=== PATIENT | female | born 1965 | race American Indian/Alaskan Native ===

== ENCOUNTER 2019-01-12 00:29 | Emergency (ER) | payer SELFPAY ==
[2019-01-12] MEDS ORDERED: PROVENTIL IH ONE (00:56)
[2019-01-12] MEDS ORDERED: ATROVENT IH ONE (00:56)
--- NOTE | 2019-01-12 00:56 | Emergency Department Report ---
ED Shortness of Breath HPI - General Chief Complaint: Dyspnea/Respdistress Stated Complaint: DIFFICULTY IN BREATHING Time Seen by Provider: 01/12/19 00:55 Source: patient Mode of arrival: Ambulatory Limitations: No Limitations - History of Present Illness MD Complaint: shortness of breath, "asthma attack" -: Sudden, This evening Severity: severe Consistency: constant Improves With: nothing Worsens With: nothing Known History Of: asthma Associated Symptoms: cough Treatments Prior to Arrival: none - Related Data Home Oxygen Therapy: No Previous Rx's Medication Instructions Recorded Last Taken Type ALBUTEROL Inhaler(NF) [VENTOLIN 2 puff IH Q6HR PRN #1 inha 01/12/19 Unknown Rx Inhaler(NF)] Amoxicillin/Potassium Clav 1 each PO BID #20 tablet 01/12/19 Unknown Rx [Augmentin 875-125 Tablet] predniSONE [Deltasone] 50 mg PO QDAY #5 tab 01/12/19 Unknown Rx Allergies Allergy/AdvReac Type Severity Reaction Status Date / Time No Known Allergies Allergy Unverified 01/12/19 00:42 ED Review of Systems ROS: Stated complaint: DIFFICULTY IN BREATHING Other details as noted in HPI Comment: All other systems reviewed and negative Constitutional: denies: chills, fever Eyes: denies: eye pain, eye discharge, vision change ENT: denies: ear pain, throat pain Respiratory: cough, shortness of breath. denies: wheezing Cardiovascular: denies: chest pain, palpitations Endocrine: no symptoms reported Gastrointestinal: denies: abdominal pain, nausea, diarrhea Genitourinary: denies: urgency, dysuria, discharge Musculoskeletal: denies: back pain, joint swelling, arthralgia Skin: denies: rash, lesions Neurological: denies: headache, weakness, paresthesias Psychiatric: denies: anxiety, depression Hematological/Lymphatic: denies: easy bleeding, easy bruising ED Past Medical Hx - Past Medical History Previous Medical History?: Yes Hx Hypertension: Yes Hx Asthma: Yes - Surgical History Past Surgical History?: No - Social History Smoking Status: Never Smoker Substance Use Type: None - Medications Home Medications: Home Medications Medication Instructions Recorded Confirmed Last Taken Type ALBUTEROL Inhaler(NF) [VENTOLIN 2 puff IH Q6HR PRN #1 inha 01/12/19 Unknown Rx Inhaler(NF)] Amoxicillin/Potassium Clav 1 each PO BID #20 tablet 01/12/19 Unknown Rx [Augmentin 875-125 Tablet] predniSONE [Deltasone] 50 mg PO QDAY #5 tab 01/12/19 Unknown Rx ED Physical Exam - General Limitations: No Limitations General appearance: alert, in no apparent distress - Head Head exam: Present: atraumatic, normocephalic - Eye Eye exam: Present: normal appearance, PERRL, EOMI - ENT ENT exam: Present: normal exam, mucous membranes moist - Neck Neck exam: Present: normal inspection, full ROM. Absent: tenderness - Respiratory Respiratory exam: Present: respiratory distress, wheezes, rhonchi - Cardiovascular Cardiovascular Exam: Present: normal rhythm, tachycardia. Absent: systolic murmur, diastolic murmur, rubs, gallop - GI/Abdominal GI/Abdominal exam: Present: soft, normal bowel sounds. Absent: distended, tenderness, guarding - Extremities Exam Extremities exam: Present: normal inspection, full ROM, normal capillary refill. Absent: tenderness - Back Exam Back exam: Present: normal inspection - Neurological Exam Neurological exam: Present: alert, oriented X3, CN II-XII intact - Psychiatric Psychiatric exam: Present: normal affect, normal mood - Skin Skin exam: Present: warm, dry, intact, normal color. Absent: rash ED Course Vital Signs 01/12/19 01/12/19 01/12/19 00:35 00:59 01:22 Temperature 97.4 F L Pulse Rate 129 H 122 H Pulse Rate [ 121 H 118 H Anterior Bilateral Throughout] Respiratory 18 20 Rate Respiratory 20 18 Rate [Anterior Bilateral Throughout] Blood Pressure 190/113 Blood Pressure 176/100 [Left] O2 Sat by Pulse 99 100 Oximetry 01/12/19 01:34 Temperature Pulse Rate 122 H Pulse Rate [ Anterior Bilateral Throughout] Respiratory Rate Respiratory Rate [Anterior Bilateral Throughout] Blood Pressure 157/85 Blood Pressure [Left] O2 Sat by Pulse Oximetry - Reevaluation(s) Reevaluation #1: 01/12/19 03:13 Patient said she feels much better after receiving treatment in the ED. She wants to go home. ED Medical Decision Making - Lab Data Result diagrams: 01/12/19 01:28 01/12/19 01:28 - Radiology Data Radiology results: report reviewed, image reviewed CXR is negative. Critical care attestation.: If time is entered above; I have spent that time in minutes in the direct care of this critically ill patient, excluding procedure time. ED Disposition Clinical Impression: Bronchitis Asthma with acute exacerbation Qualifiers: Asthma severity: unspecified severity Asthma persistence: unspecified Qualified Code(s): J45.901 - Unspecified asthma with (acute) exacerbation Disposition: TO HOME OR SELFCARE Is pt being admited?: No Does the pt Need Aspirin: No Condition: Stable Instructions: Asthma (ED), Acute Bronchitis (ED) Additional Instructions: Please follow up with your regular doctor on Sunday. Return to the ED if your condition worsens. Prescriptions: ALBUTEROL Inhaler(NF) [VENTOLIN Inhaler(NF)] 2 puff IH Q6HR PRN #1 inha PRN Reason: Shortness Of Breath Amoxicillin/Potassium Clav [Augmentin 875-125 Tablet] 1 each PO BID #20 tablet predniSONE [Deltasone] 50 mg PO QDAY #5 tab Referrals: ALYSON NAVARRETE MD [Primary Care Provider] - 3-5 Days Time of Disposition: 03:14
[2019-01-12] MEDS ORDERED: SOLU-Medrol IV ONE (01:02)
[2019-01-12] MEDS ORDERED: LEVAQUIN 750MG/150ML 750 MG/150 ML BAG IV ONE (01:02)
[2019-01-12] MEDS ORDERED: CATAPRES PO ONE ×2 (01:06→01:24)
[2019-01-12 02:06] LABS: Alanine Aminotransferase 12 units/L (7-56); Albumin 4.1 g/dL (3.9-5); BUN/Creatinine Ratio 13; Blood Urea Nitrogen 8 mg/dL (7-17); Calcium 8.9 mg/dL (8.4-10.2); Hemolysis Index 41
[2019-01-12 02:16] LABS: Basophils # (Auto) 0.1 K/mm3 (0.0-0.1); Eosinophils # (Auto) 0.9 K/mm3 (0.0-0.4); Eosinophils % (Auto) 7.6 % (0.0-4.3); Hematocrit 36.2 % (30.3-42.9); Hemoglobin 11.7 gm/dl (10.1-14.3); Lymphocytes # (Auto) 3.2 K/mm3 (1.2-5.4); Mean Corpuscular HGB Conc 32 % (30-34); Mean Corpuscular Volume 83 fl (79-97); Monocytes % (Auto) 8.7 % (0.0-7.3); Platelet Count 428 K/mm3 (140-440); Red Blood Count 4.39 M/mm3 (3.65-5.03); Red Cell Distribution Width 14.7 % (13.2-15.2)
[2019-01-12 03:44] VITALS: BP 117/61
--- NOTE | 2019-01-14 08:23 | XRay Report ---
FINAL REPORT PROCEDURE: XRAY CHEST 2 VIEWS TECHNIQUE: PA and lateral chest radiographs were obtained. CPT 12669 HISTORY: DYSPENA COMPARISON: No prior studies are available for comparison. FINDINGS: Heart: Normal. Mediastinum/Vessels: Normal. Lungs/Pleural space: Normal. Bony thorax: No acute osseous abnormality. Other: IMPRESSION: Normal examination.
== END 2019-01-12 03:35 | disposition home or self-care (01) ==
LOC: ED 00:29
DX: J45.901 Unspecified asthma with (acute) exacerbation (principal); I10 Essential (primary) hypertension
CPT/HCPCS: 36415; 71045; 80053; 82803; 83735; 85025; 94640; 96365; 96366; 96375; 99284; J1956; J2930

== ENCOUNTER 2019-02-19 16:36 | Inpatient (IN) | payer OTHER ==
[2019-02-19] MEDS ORDERED: ATROVENT IH ONE (16:43)
[2019-02-19] MEDS ORDERED: PROVENTIL IH ONE (16:43)
[2019-02-19] MEDS ORDERED: DECADRON IM ONE (16:43)
--- NOTE | 2019-02-19 16:43 | Emergency Department Report ---
Blank Doc - Documentation Documentation: This is a 53-year-old female that presents with wheezing and SOB. This initial assessment/diagnostic orders/clinical plan/treatment(s) is/are subject to change based on patient's health status, clinical progression and re- assessment by fellow clinical providers in the ED. Further treatment and workup at subsequent clinical providers discretion. Patient/guardians urged not to elope from the ED as their condition may be serious if not clinically assessed and managed. Initial orders include: 1- Patient sent to [facility] for further evaluation and treatment 2- CXR 3- breathing treatment with steroids
[2019-02-19] MEDS ORDERED: MAGNESIUM SULFATE IV ONE (17:12)
[2019-02-19] MEDS ORDERED: DUONEB *Not for PRN Use IH ONE (17:15)
[2019-02-19] MEDS ORDERED: MAGNESIUM SULFATE 2GM/50ML 2 GM/50 ML BAG IV ONE (17:15)
--- NOTE | 2019-02-19 17:40 | Emergency Department Report ---
ED Asthma HPI - General Chief Complaint: Adult Asthma Stated Complaint: ASTHMA Time Seen by Provider: 02/19/19 16:42 Source: patient Mode of arrival: Ambulatory Limitations: No Limitations - History of Present Illness Initial Comments: Pt is a 53 yo female who presents to the ED with c/o asthma exacerbation that began yesterday. She has associated SOB and wheezing. The patient states she used three albuterol nebulizer treatments at home today. She states she also went to [facility] today and had a breathing treatment there as well. She also uses a proair inhaler. The patient denies any productive cough, fever, or rhinorrhea. She states she does have seasonal allergies. The patient says she is supposed to be on montelukast but ran out a week ago. - Related Data Previous Rx's Medication Instructions Recorded Last Taken Type ALBUTEROL Inhaler(NF) [VENTOLIN 2 puff IH Q6HR PRN #1 inha 01/12/19 Unknown Rx Inhaler(NF)] Amoxicillin/Potassium Clav 1 each PO BID #20 tablet 01/12/19 Unknown Rx [Augmentin 875-125 Tablet] predniSONE [Deltasone] 50 mg PO QDAY #5 tab 01/12/19 Unknown Rx Allergies Allergy/AdvReac Type Severity Reaction Status Date / Time No Known Allergies Allergy Unverified 01/12/19 00:42 ED Review of Systems ROS: Stated complaint: ASTHMA Other details as noted in HPI Comment: All other systems reviewed and negative ED Past Medical Hx - Past Medical History Hx Hypertension: Yes Hx Asthma: Yes - Surgical History Past Surgical History?: No - Social History Smoking Status: Never Smoker Substance Use Type: None - Medications Home Medications: Home Medications Medication Instructions Recorded Confirmed Last Taken Type ALBUTEROL Inhaler(NF) [VENTOLIN 2 puff IH Q6HR PRN #1 inha 01/12/19 Unknown Rx Inhaler(NF)] Amoxicillin/Potassium Clav 1 each PO BID #20 tablet 01/12/19 Unknown Rx [Augmentin 875-125 Tablet] predniSONE [Deltasone] 50 mg PO QDAY #5 tab 01/12/19 Unknown Rx ED Physical Exam - General Limitations: No Limitations General appearance: alert - Head Head exam: Present: atraumatic, normocephalic - Eye Eye exam: Present: normal appearance - ENT ENT exam: Present: mucous membranes moist - Respiratory Respiratory exam: Present: respiratory distress (moderate ), wheezes (diffuse ), other (pt is able to speak in full sentences ). Absent: rales, rhonchi, stridor, chest wall tenderness, decreased breath sounds - Cardiovascular Cardiovascular Exam: Present: regular rate, normal rhythm, normal heart sounds. Absent: systolic murmur, rubs, gallop - Neurological Exam Neurological exam: Present: alert, oriented X3 - Psychiatric Psychiatric exam: Present: normal affect, normal mood - Skin Skin exam: Present: warm, dry, intact ED Course Vital Signs 02/19/19 02/19/19 02/19/19 16:42 17:21 19:50 Temperature 97.5 F L 97.7 F Pulse Rate 115 H 100 H Pulse Rate [ 107 H Anterior Bilateral Throughout] Respiratory 20 18 Rate Respiratory 24 Rate [Anterior Bilateral Throughout] Blood Pressure 157/91 Blood Pressure 134/83 [Left] O2 Sat by Pulse 100 95 Oximetry 02/19/19 22:24 Temperature 97.9 F Pulse Rate 102 H Pulse Rate [ Anterior Bilateral Throughout] Respiratory 18 Rate Respiratory Rate [Anterior Bilateral Throughout] Blood Pressure Blood Pressure 139/88 [Left] O2 Sat by Pulse 96 Oximetry - Reevaluation(s) Reevaluation #1: 02/19/19 17:40 pt given neb tx and dexamethasone 10 mg in triage continues to have diffuse wheezing and working to breath, will give longer tx and magnesium and will reassess Reevaluation #2: 02/19/19 20:00 s/p neb tx pt continues to wheeze, will call inpatient to admit for asthma exacerbation - Consultations Consultation #1: 02/19/19 20:15 Called inpatient who advised that someone would call back Consultation #2: 02/19/19 21:[address] maguire, hospitalist for admission Consultation #3: 02/19/19 22:[address] Maguire, hospitalist who will admit patient and resume care. ED Medical Decision Making - Radiology Data Radiology results: report reviewed PROCEDURE: XR CHEST ROUTINE 2V HISTORY: sob wheezing FINDINGS: Frontal and lateral views the chest were acquired and compared to the prior examination of January 12. The heart is normal in size. The lungs appear mildly hyperinflated similar to the prior exam. There is no acute consolidative infiltrate. IMPRESSION: Stable mild hyperinflation This document is electronically signed by Heraclio Carias MD., February 19 2019 07:48:55 PM ET - Medical Decision Making Pt is a 53 yo female who presents to the ED with c/o asthma exacerbation that began yesterday. She has associated SOB and wheezing. The patient states she used three albuterol nebulizer treatments at home today. She states she also went to [facility] today and had a breathing treatment there as well. She also uses a proair inhaler. The patient denies any productive cough, fever, or rhinorrhea. Pt given duo neb and dexamethasone in triage and continued to have wheezing. Pt given another neb treatment at a higher dose and magnesium sulfate and still continued wheezing. CXR with no acute process except for asthma changes. Oxygen saturation between 95-100%. Pt admitted to Dr. Maguire, hospitalist for further evaluation and management of asthma exacerbation. - Differential Diagnosis Asthma exacerbation, PNA, URI Critical care attestation.: If time is entered above; I have spent that time in minutes in the direct care of this critically ill patient, excluding procedure time. ED Disposition Clinical Impression: Asthma exacerbation Qualifiers: Asthma severity: moderate Asthma persistence: persistent Qualified Code(s): J45.41 - Moderate persistent asthma with (acute) exacerbation Disposition: 09 OP ADMIT IP TO THIS HOSP Is pt being admited?: Yes Does the pt Need Aspirin: No Condition: Stable Time of Disposition: 22:20
--- NOTE | 2019-02-19 19:51 | XRay Report ---
PROCEDURE: XR CHEST ROUTINE 2V HISTORY: sob wheezing FINDINGS: Frontal and lateral views the chest were acquired and compared to the prior examination of January 12. The heart is normal in size. The lungs appear mildly hyperinflated similar to the prior exam. There i s no acute consolidative infiltrate. IMPRESSION: Stable mild hyperinflation This document is electronically signed by Heraclio Carias MD., February 19 2019 07:48:55 PM ET
[2019-02-19] MEDS ORDERED: TYLENOL PO PRN (22:47)
[2019-02-19] MEDS ORDERED: ZOFRAN IV PRN (22:47)
--- NOTE | 2019-02-19 22:49 | History and Physical Report ---
History of Present Illness Date of examination: 02/19/19 History of present illness: 53-year-old was admitted a history of asthma comes emergency room with complaints of shortness of breath, wheezing 1 week. She was seen at [facility] one week ago and was given prednisone, Augmentin which she has been taking for last 1 week. There is symptoms improve slightly however it got worse again. She was seen at [facility] today, they gave her breathing treatment, she can to emergency room for further evaluation. Complaining of cough productive of clear phlegm, no fever or chills Review of systems Constitutional: no weight loss, chills, fever Ears, eyes, nose, mouth and throat: no nasal congestion, no nasal discharge, no sinus pressure, no vision change, no red eye. Neck: No neck pain or rigidity. Cardiovascular: no palpitations, chest pain Respiratory: +cough, shortness of breath Gastrointestinal: no hematochezia, abdominal pain Genitourinary : no frequency , no hematuria Musculoskeletal: no joint swelling or muscle ache Integumentary: no rash, no pruritis Neurological: no parathesias, no focal weakness Endocrine: no cold or heat intolerance, no polyuria or polydipsia Hematologic/Lymphatic: no easy bruising, no easy bleeding, no gland swelling Allergic/Immunologic: no urticaria, no angioedema. PAST MEDICAL HISTORY:asthma PAST SURGICAL HISTORY: None SOCIAL HISTORY: Denies alcohol, drugs, tobacco FAMILY HISTORY: Hypertension Medications and Allergies Allergies Allergy/AdvReac Type Severity Reaction Status Date / Time No Known Allergies Allergy Unverified 01/12/19 00:42 Home Medications Medication Instructions Recorded Confirmed Last Taken Type ALBUTEROL Inhaler(NF) [VENTOLIN 2 puff IH Q6HR PRN #1 inha 01/12/19 Unknown Rx Inhaler(NF)] Amoxicillin/Potassium Clav 1 each PO BID #20 tablet 01/12/19 Unknown Rx [Augmentin 875-125 Tablet] predniSONE [Deltasone] 50 mg PO QDAY #5 tab 01/12/19 Unknown Rx Active Meds: Active Medications Acetaminophen (Tylenol) 650 mg PO Q4H PRN PRN Reason: Pain MILD(1-3)/Fever >100.5/MARTINEZ Albuterol/Ipratropium (Duoneb *Not For Prn Use*) 1 ampul IH Q6HRT [facility] Enoxaparin Sodium (Lovenox) 30 mg SUB-Q QDAY ALTHEA Methylprednisolone Sodium Succinate (Solu-Medrol) 125 mg IV Q6H ALTHEA Ondansetron HCl (Zofran) 4 mg IV Q4H PRN PRN Reason: Nausea And Vomiting Sodium Chloride (Sodium Chloride Flush Syringe 10 Ml) 10 ml IV BID ALTHEA Sodium Chloride (Sodium Chloride Flush Syringe 10 Ml) 10 ml IV PRN PRN PRN Reason: LINE FLUSH Exam - Physical Exam Narrative exam: General Apperance: The patient lying in bed, breathing comfortable HEENT: Normocephalic, atraumatic. Pupils equally round and reactive to light, EOMI, no sclericterus or JVD or thyromegaly or nodule. , no carotid bruit, m ucous membranes moist, no exudate or erythema Heart: S1-S2, regular is rhythm Lungs: Wheezing bilaterally, breathing comfortable Abdomen: Positive bowel sounds, soft, nontender, nondistended, no organomegaly Extremities: No edema cyanosis clubbing Skin: no rash, nodule, warm and dry Neuro: cranial nerves 2-12 intact, speech is fluent, motor/sensory intact - Constitutional Vitals: Temp Pulse Resp BP Pulse Ox 97.9 F 102 H 18 139/88 96 02/19/19 22:24 02/19/19 22:24 02/19/19 22:24 02/19/19 22:24 02/19/19 22:24 Results - Imaging and Cardiology EKG: image reviewed Chest x-ray: image reviewed Assessment and Plan Assessment Acute asthma exacerbation Plan Admit to medicine Start high-dose steroids, nebulizer treatments DVT prophylaxis
[2019-02-19] MEDS: SOLU-Medrol IV SCH (23:19)
[2019-02-20] MEDS: DUONEB *Not for PRN Use IH SCH ×4 (03:51→21:54)
[2019-02-20] MEDS: SOLU-Medrol IV SCH ×3 (06:19→17:28)
[2019-02-20 06:20] LABS: Hematocrit 33.5 % (30.3-42.9); Hemoglobin 11.2 gm/dl (10.1-14.3); Mean Corpuscular HGB Conc 33 % (30-34); Mean Corpuscular Hemoglobin 27 pg (28-32); Mean Corpuscular Volume 81 fl (79-97); Platelet Count 537 K/mm3 (140-440); Red Blood Count 4.16 M/mm3 (3.65-5.03); Red Cell Distribution Width 14.8 % (13.2-15.2)
[2019-02-20] MEDS: SODIUM CHLORIDE FLUSH SYRINGE 10 ML IV PRN (06:20)
[2019-02-20 06:28] LABS: BUN/Creatinine Ratio 15; Blood Urea Nitrogen 6 mg/dL (7-17); Calcium 9.2 mg/dL (8.4-10.2); Hemolysis Index 0
[2019-02-20 07:58] LABS: Anisocytosis 1+; Basophils % (Manual) 0 % (0.0-1.8); Eosinophils % (Manual) 0 % (0.0-4.3); Hypochromasia 1+; Platelet Estimate Consistent w Auto; Total Cells Counted 100
[2019-02-20] MEDS: LOVENOX SUB-Q SCH (10:05)
[2019-02-20] MEDS: SODIUM CHLORIDE FLUSH SYRINGE 10 ML IV SCH (10:06)
[2019-02-20] MEDS ORDERED: POTASSIUM CHLORIDE PO ONE (11:00)
[2019-02-20] MEDS ORDERED: LOSARTAN HCTZ PO SCH (11:15)
[2019-02-20] MEDS ORDERED: NON-FORMULARY (Singulair 10 MG) PO SCH (11:15)
[2019-02-20] MEDS ORDERED: PNEUMOVAX 23 IM ONE (12:00)
[2019-02-20] MEDS ORDERED: SINGULAIR PO SCH (22:00)
--- NOTE | 2019-02-20 22:04 | Progress Note ---
Assessment and Plan Assessment and plan: Patient is a 53-year-old was admitted a history of asthma comes emergency room with complaints of shortness of breath, wheezing 1 week. She was seen at [place] one week ago and was given prednisone, Augmentin which she has been taking for last 1 week. There is symptoms improve slightly however it got worse again. She was seen at [place] today, they gave her breathing treatment, she can to emergency room for further evaluation. Complaining of cough productive of clear phlegm, no fever or chills * On admission she was treated with steroids, magnesium, nebulized treatments with improvement. * Chest x-ray showed mild hyperinflation * She was noted to have elevated blood pressure and does have a diagnosis of hypertension medications were reconciled and given * Anticipate discharge in a.m. if continues to improve Acute asthma exacerbation Hypertensive urgency Morbid obesity Plan Continue supportive care Taper steroids, nebulizer treatments Anticipated discharge in a.m. Extensive counseling provided to the patient will need to lose weight patient verbalized understanding DVT prophylaxis History Interval history: Patient seen and examined this a.m. reports improvement following nebulizer treatment and steroids and magnesium. Denies any fever. Denies any tobacco history or exposure. No other Reported by nursing staff Hospitalist Physical - Physical exam Narrative exam: VITAL SIGNS: Reviewed. GENERAL: The patient appeared well nourished and normally developed, Vital signs as documented. HEAD: No signs of head trauma. EYES: Pupils are equal. Extraocular motions intact. EARS: Hearing grossly intact. MOUTH: Oropharynx is normal. NECK: No adenopathy, no JVD. CHEST: Chest with mild bibasilar wheezing CARDIAC: Regular rate and rhythm. S1 and S2, without murmurs, gallops, or rubs. VASCULAR: No Edema. Peripheral pulses normal and equal in all extremities. ABDOMEN: Soft, non tender and non distended. No rebound or guarding, and no masses palpated. Bowel Sounds normal. MUSCULOSKELETAL: Good range of motion of all major joints. Extremities without clubbing, cyanosis or edema. NEUROLOGIC EXAM: Alert and oriented x 3 No focal sensory or strength deficits. Speech normal. Follows commands. PSYCHIATRIC: Mood normal. SKIN: No rash or lesions. - Constitutional Vitals: Temp Pulse Resp BP Pulse Ox 98.3 F 102 H 20 154/89 98 02/20/19 17:34 02/20/19 21:57 02/20/19 21:57 02/20/19 17:34 02/20/19 21:57 Results - Labs CBC & Chem 7: 02/20/19 05:03 02/20/19 05:03 Labs: Laboratory Last Values WBC 8.9 K/mm3 (4.5-11.0) 02/20/19 05:03 RBC 4.16 M/mm3 (3.65-5.03) 02/20/19 05:03 Hgb 11.2 gm/dl (10.1-14.3) 02/20/19 05:03 Hct 33.5 % (30.3-42.9) 02/20/19 05:03 MCV 81 fl (79-97) 02/20/19 05:03 MCH 27 pg (28-32) L 02/20/19 05:03 MCHC 33 % (30-34) 02/20/19 05:03 RDW 14.8 % (13.2-15.2) 02/20/19 05:03 Plt Count 537 K/mm3 (140-440) H 02/20/19 05:03 Add Manual Diff Complete 02/20/19 05:03 Total Counted 100 02/20/19 05:03 Seg Neutrophils % Key Worker 02/20/19 05:03 Seg Neuts % (Manual) 83.0 % (40.0-70.0) H 02/20/19 05:03 Band Neutrophils % 0 % 02/20/19 05:03 Lymphocytes % (Manual) 14.0 % (13.4-35.0) 02/20/19 05:03 Reactive Lymphs % (Man) 0 % 02/20/19 05:03 Monocytes % (Manual) 3.0 % (0.0-7.3) 02/20/19 05:03 Eosinophils % (Manual) 0 % (0.0-4.3) 02/20/19 05:03 Basophils % (Manual) 0 % (0.0-1.8) 02/20/19 05:03 Metamyelocytes % 0 % 02/20/19 05:03 Myelocytes % 0 % 02/20/19 05:03 Promyelocytes % 0 % 02/20/19 05:03 Blast Cells % 0 % 02/20/19 05:03 Nucleated RBC % Not Reportable 02/20/19 05:03 Seg Neutrophils # Man 7.4 K/mm3 (1.8-7.7) 02/20/19 05:03 Band Neutrophils # 0.0 K/mm3 02/20/19 05:03 Lymphocytes # (Manual) 1.2 K/mm3 (1.2-5.4) 02/20/19 05:03 Abs React Lymphs (Man) 0.0 K/mm3 02/20/19 05:03 Monocytes # (Manual) 0.3 K/mm3 (0.0-0.8) 02/20/19 05:03 Eosinophils # (Manual) 0.0 K/mm3 (0.0-0.4) 02/20/19 05:03 Basophils # (Manual) 0.0 K/mm3 (0.0-0.1) 02/20/19 05:03 Metamyelocytes # 0.0 K/mm3 02/20/19 05:03 Myelocytes # 0.0 K/mm3 02/20/19 05:03 Promyelocytes # 0.0 K/mm3 02/20/19 05:03 Blast Cells # 0.0 K/mm3 02/20/19 05:03 WBC Morphology Not Reportable 02/20/19 05:03 Hypersegmented Neuts Not Reportable 02/20/19 05:03 Hyposegmented Neuts Not Reportable 02/20/19 05:03 Hypogranular Neuts Not Reportable 02/20/19 05:03 Smudge Cells Not Reportable 02/20/19 05:03 Toxic Granulation Not Reportable 02/20/19 05:03 Toxic Vacuolation Not Reportable 02/20/19 05:03 Dohle Bodies Not Reportable 02/20/19 05:03 Pelger-Huet Anomaly Not Reportable 02/20/19 05:03 Hannah Rods Not Reportable 02/20/19 05:03 Platelet Estimate Consistent w auto 02/20/19 05:03 Clumped Platelets Not Reportable 02/20/19 05:03 Plt Clumps, EDTA Not Reportable 02/20/19 05:03 Large Platelets Not Reportable 02/20/19 05:03 Giant Platelets Not Reportable 02/20/19 05:03 Platelet Satelliting Not Reportable 02/20/19 05:03 Plt Morphology Comment Not Reportable 02/20/19 05:03 RBC Morphology Not Reportable 02/20/19 05:03 Dimorphic RBCs Not Reportable 02/20/19 05:03 Polychromasia Not Reportable 02/20/19 05:03 Hypochromasia 1+ 02/20/19 05:03 Poikilocytosis Not Reportable 02/20/19 05:03 Anisocytosis 1+ 02/20/19 05:03 Microcytosis Not Reportable 02/20/19 05:03 Macrocytosis Not Reportable 02/20/19 05:03 Spherocytes Not Reportable 02/20/19 05:03 Pappenheimer Bodies Not Reportable 02/20/19 05:03 Sickle Cells Not Reportable 02/20/19 05:03 Target Cells Not Reportable 02/20/19 05:03 Tear Drop Cells Not Reportable 02/20/19 05:03 Ovalocytes Not Reportable 02/20/19 05:03 Helmet Cells Not Reportable 02/20/19 05:03 Patel-Hosford Bodies Not Reportable 02/20/19 05:03 Bertrand Rings Not Reportable 02/20/19 05:03 Dorrance Cells Not Reportable 02/20/19 05:03 Bite Cells Not Reportable 02/20/19 05:03 Crenated Cell Not Reportable 02/20/19 05:03 Elliptocytes Not Reportable 02/20/19 05:03 Acanthocytes (Spur) Not Reportable 02/20/19 05:03 Rouleaux Not Reportable 02/20/19 05:03 Hemoglobin C Crystals Not Reportable 02/20/19 05:03 Schistocytes Not Reportable 02/20/19 05:03 Malaria parasites Not Reportable 02/20/19 05:03 James Bodies Not Reportable 02/20/19 05:03 Hem Pathologist Commnt No 02/20/19 05:03 Sodium 141 mmol/L (137-145) 02/20/19 05:03 Potassium 3.3 mmol/L (3.6-5.0) L 02/20/19 05:03 Chloride 100.9 mmol/L (98-107) 02/20/19 05:03 Carbon Dioxide 23 mmol/L (22-30) 02/20/19 05:03 Anion Gap 20 mmol/L 02/20/19 05:03 BUN 6 mg/dL (7-17) L 02/20/19 05:03 Creatinine 0.4 mg/dL (0.7-1.2) L 02/20/19 05:03 Estimated GFR > 60 ml/min 02/20/19 05:03 BUN/Creatinine Ratio 15 % 02/20/19 05:03 Glucose 198 mg/dL (65-100) H 02/20/19 05:03 Calcium 9.2 mg/dL (8.4-10.2) 02/20/19 05:03 Active Medications - Current Medications Current Medications: Generic Name Dose Route Start Last Admin Trade Name Freq PRN Reason Stop Dose Admin Acetaminophen 650 mg 02/19/19 22:47 02/20/19 10:20 Tylenol PO 650 mg Q4H PRN Administration Pain MILD(1-3)/Fever >100.5/MARTINEZ Albuterol/Ipratropium 1 ampul 02/20/19 02:00 02/20/19 21:54 Duoneb *Not For Prn Use* IH 1 ampul Q6HRT ALTHEA Administration Aspirin 81 mg 02/21/19 10:00 Baby Aspirin PO QDAY ALTHEA Atorvastatin Calcium 40 mg 02/20/19 22:00 Lipitor PO QHS ALTHEA Enoxaparin Sodium 40 mg 02/20/19 10:00 02/20/19 10:05 Lovenox SUB-Q 40 mg QDAY@1000 ALTHEA Administration Hydrochlorothiazide 12.5 mg 02/20/19 20:00 Hctz PO QDAY ALTHEA Losartan Potassium 50 mg 02/20/19 20:00 Cozaar PO QDAY ALTHEA Methylprednisolone Sodium Succinate 125 mg 02/19/19 23:00 02/20/19 17:28 Solu-Medrol IV 125 mg Q6HR ALTHEA Administration Montelukast Sodium 10 mg 02/20/19 22:00 Singulair PO QHS ALTHEA Ondansetron HCl 4 mg 02/19/19 22:47 Zofran IV Q4H PRN Nausea And Vomiting Sodium Chloride 10 ml 02/20/19 10:00 02/20/19 10:06 Sodium Chloride Flush Syringe 10 Ml IV 10 ml BID ALTHEA Administration Sodium Chloride 10 ml 02/19/19 22:47 02/20/19 06:20 Sodium Chloride Flush Syringe 10 Ml IV 10 ml PRN PRN Administration LINE FLUSH
[2019-02-20] MEDS: COZAAR PO SCH (22:45)
[2019-02-20] MEDS: HCTZ PO SCH (22:45)
[2019-02-21] MEDS: SOLU-Medrol IV SCH ×3 (00:28→12:50)
[2019-02-21] MEDS: SODIUM CHLORIDE FLUSH SYRINGE 10 ML IV PRN (00:28)
[2019-02-21] MEDS: SODIUM CHLORIDE FLUSH SYRINGE 10 ML IV SCH ×2 (00:28→10:45)
[2019-02-21] MEDS: DUONEB *Not for PRN Use IH SCH ×3 (03:45→14:23)
[2019-02-21 07:08] LABS: BUN/Creatinine Ratio 22; Blood Urea Nitrogen 11 mg/dL (7-17); Calcium 9.3 mg/dL (8.4-10.2); Hemolysis Index 2
[2019-02-21] MEDS ORDERED: NON-FORMULARY (Aspirin 81 MG) PO SCH (10:00)
[2019-02-21] MEDS ORDERED: NON-FORMULARY (Atorvastatin 40 MG) PO SCH (10:00)
[2019-02-21] MEDS ORDERED: BABY ASPIRIN PO SCH (10:00)
[2019-02-21] MEDS: HCTZ PO SCH (10:44)
[2019-02-21] MEDS: COZAAR PO SCH (10:44)
[2019-02-21] MEDS: LOVENOX SUB-Q SCH (10:45)
--- NOTE | 2019-02-21 12:04 | Discharge Summary ---
Providers - Providers Date of Admission: 02/19/19 22:47 Date of discharge: 02/21/19 Attending physician: CHAO GONZALEZ Primary care physician: VAULT CLERK Hospitalization Condition: Stable Hospital course: Patient is a 53-year-old was admitted a history of asthma comes emergency room with complaints of shortness of breath, wheezing 1 week. She was seen at [place] one week ago and was given prednisone, Augmentin which she has been taking for last 1 week. There is symptoms improve slightly however it got worse again. She was seen at [place] today, they gave her breathing treatment, she can to emergency room for further evaluation. Complaining of cough productive of clear phlegm, no fever or chills * On admission she was treated with steroids, magnesium, nebulized treatments with improvement. * Chest x-ray showed mild hyperinflation * She was noted to have elevated blood pressure and does have a diagnosis of hypertension medications were reconciled and given Acute asthma exacerbation Hypertensive urgency Morbid obesity Disposition: DC-01 TO HOME OR SELFCARE Time spent for discharge: 32 minutes Core Measure Documentation - Palliative Care Palliative Care/ Comfort Measures: Not Applicable - Core Measures Any of the following diagnoses?: none - VTE Discharge Requirements Deep Vein Thrombosis/Pulmonary Embolism Present on Admission: No Has pt received <5 days of overlap therapy or INR<2.0: No Anticoagulant overlap therapy prescribed at discharge: No Contraindication No Overlap Therapy order at DC: Not Indicated Exam - Constitutional Vitals: Temp Pulse Resp BP Pulse Ox 98.2 F 111 H 20 136/78 97 02/21/19 04:50 02/21/19 10:44 02/21/19 04:50 02/21/19 10:44 02/21/19 04:50 General appearance: Present: no acute distress - EENT Eyes: Present: PERRL ENT: hearing intact - Neck Neck: Present: supple - Respiratory Respiratory effort: normal Respiratory: bilateral: CTA - Cardiovascular Rhythm: regular Heart Sounds: Present: S1 & S2 - Extremities Extremities: no ischemia Peripheral Pulses: within normal limits - Abdominal General gastrointestinal: Present: soft, non-tender, non-distended, normal bowel sounds - Integumentary Integumentary: Present: clear, warm, dry - Musculoskeletal Musculoskeletal: strength equal bilaterally - Psychiatric Psychiatric: appropriate mood/affect, intact judgment & insight - Neurologic Neurologic: CNII-XII intact, no focal deficits, moves all extremities, gait normal Plan Follow up with: ALYSON NAVARRETE MD [Referring] - 2-3 Days Forms: Work/School Release Form Prescriptions: Fexofenadine HCl [Marcela Allergy] 1 dose PO QDAY #30 tablet methylPREDNISolone [Medrol Dose Sanya] 1 dose PO DAILY #1 pack ALBUTEROL Inhaler(NF) [VENTOLIN Inhaler(NF)] 2 puff IH Q4H PRN #1 inha PRN Reason: Shortness Of Breath
[2019-02-21 12:50] VITALS: BP 155/94
[2019-02-21] MEDS ORDERED: CLARITIN PO SCH (13:00)
== END 2019-02-21 14:45 | disposition home or self-care (01) | DRG 202 ==
LOC: ED 16:36 → 3A 22:47
PROVIDERS: ADMIT Internal Medicine; ATTEND Internal Medicine
PROC: 3E0234Z Introduction of Serum, Toxoid and Vaccine into Muscle, Percutaneous Approach (ICD-10-PCS; principal; 2019-02-20)
DX: J45.41 Moderate persistent asthma with (acute) exacerbation (principal); Z68.41 Body mass index [BMI] 40.0-44.9, adult; I10 Essential (primary) hypertension; I16.0 Hypertensive urgency; E66.01 Morbid (severe) obesity due to excess calories; Z79.899 Other long term (current) drug therapy; Z79.51 Long term (current) use of inhaled steroids; Z82.49 Family history of ischemic heart disease and other diseases of the circulatory system; Z23 Encounter for immunization
CPT/HCPCS: 36415; 71046; 80048; 85007; 85025; 90732; 94640; 96365; 96372; G0378; A9270-GY; J1100; J1650; J2930; J3475